=== PATIENT | male | born 1950 | race Caucasian/White ===

== ENCOUNTER → 2020-01-28 12:31 | Outpatient (CLI) | payer SELFPAY ==
[2019-12-25 11:14] VITALS: BMI 38.0
--- NOTE | 2020-01-28 12:32 | ECHOCS_ITS ---
Version 2 Reason For Study: MV Repair Procedure This was a 2D Doppler, Color Flow transthoracic echocardiogram. The study was technically difficult. Contrast injection was performed. Exam performed in department. Left Ventricle Normal LV size. Left ventricular systolic function is normal. The estimated ejection fraction is 60 %. Stage 1 diastolic dysfunction. No regional wall motion abnormalities noted. Right Ventricle Normal RV size. Normal systolic function. Atria Normal left atrium. Normal right atrium. Mitral Valve Status post mitral valve repair. Tricuspid Valve Normal tricuspid valve. Aortic Valve Trisinus/trileaflet aortic valve. Pulmonic Valve Normal pulmonic valve. Great Vessels Normal aortic root. Pericardium/Pleural No pericardial effusion. Medication 22 gauge I.V. with prn adaptor inserted into right arm. Diluted definity 2ml given slow IV push to enhance endocardial definition. MMode/2D Measurements & Calculations LVIDd: 4.4 cm IVSd: 1.5 cm Ao root diam: 3.6 cm LVIDs: 2.6 cm LVPWd: 1.1 cm LA dimension: 4.5 cm FS: 42.0 % LAV(MOD-bp): 58.9 ml LA A4 area: 20.5 cm2 RA A4 area: 17.8 cm2 LAV(MOD-bp) Indexed: 27.0 ml/m2 LAV(MOD-sp2): 61.3 ml LAV(MOD-sp4): 51.2 ml Time Measurements MV dec time: 0.31 sec Doppler Measurements & Calculations MV E max emerson: 102.5 cm/sec Lat Peak E' Emerson: 10.3 cm/sec Med Peak E' Emerson: 7.0 cm/sec MV A max emerson: 147.8 cm/sec E/E' lat: 9.9 E/E' med: 14.6 MV E/A: 0.69 MV V2 max: 150.2 cm/sec MV P1/2t max emerson: 127.1 cm/sec Ao V2 max: 151.2 cm/sec MV max P.0 mmHg MV P1/2t: 97.6 msec Ao max P.1 mmHg MV V2 mean: 82.8 cm/sec MV dec slope: 381.4 cm/sec2 MV mean P.2 mmHg MV V2 VTI: 40.0 cm MVA(P1/2t): 2.3 cm2 LV V1 max: 97.5 cm/sec PA V2 max: 107.9 cm/sec LV V1 max P.8 mmHg Interpretation Summary Normal LV size. Left ventricular systolic function is normal. The estimated ejection fraction is 60 %. Stage 1 diastolic dysfunction. Status post mitral valve repair. Contrast injection was performed. Ordering Physician: Guevara Baxter Referring Physician: William Pagan Performed By: Elan Mitchell RCS
== END ==
PROVIDERS: PCP Family Medicine; Referring Provider Internal Medicine Cardiovascular Disease; Visit Provider Internal Medicine Cardiovascular Disease
DX: I10 Essential (primary) hypertension (principal); Z98.890 Other specified postprocedural states
CPT/HCPCS: 93306; Q9957; A4216; C8929

== ENCOUNTER → 2021-12-28 | Outpatient (CLI) | payer SELFPAY ==
--- NOTE | 2021-12-28 09:54 | RAD_ITS ---
EXAM: XR CHEST, 2 VIEWS CLINICAL INDICATION: SOB TECHNIQUE: Frontal and lateral views of the chest. This report was created using [employer] report generation technology. COMPARISON: None. FINDINGS: LUNGS AND PLEURAL SPACES: There is blunting the costophrenic angles compatible small effusions. There is right basilar airspace disease. No pneumothorax. HEART: Unremarkable. Cardiac silhouette not enlarged. MEDIASTINUM: Central airways and mediastinal contour are unremarkable. BONES/JOINTS: Unremarkable. SOFT TISSUES: Unremarkable. RAD/Chest PA and Lateral IMPRESSION: Small bilateral effusions with right basilar airspace disease which may represent atelectasis or pneumonia. Electronically Signed: Manav Mota MD at 17:58 EDT ,
[2021-12-28 10:34] LABS: BNP,B-Type NATRIURETIC PEPTIDE 57.7 pg/mL (0-100)
[2021-12-28 10:40] LABS: Anion Gap 3 (5-15); BUN 16 mg/dL (7-18); BUN/Creat Ratio 23.3 RATIO (10-20); Calcium,Total 8.6 mg/dL (8.5-10.1); Chloride 106 mmol/L (98-107); Creatinine, Serum 0.69 mg/dL (0.70-1.30); EST Glomerular Filtration Rate 121 mL/min (>60); Est Glom Filt Rate - Afr Amer 146 mL/min (>60); Glucose 114 mg/dL (74-106); Potassium 4.1 mmol/L (3.5-5.1); Sodium Level 137 mmol/L (136-145)
== END | disposition home or self-care (01) ==
PROVIDERS: PCP Family Medicine; Referring Provider Nurse Practitioner Family; Visit Provider Nurse Practitioner Family
DX: I34.0 Nonrheumatic mitral (valve) insufficiency (principal); R06.00 Dyspnea, unspecified
CPT/HCPCS: 36415; 71046; 80048; 83880

== ENCOUNTER → 2024-02-12 | Outpatient (CLI) | payer SELFPAY ==
--- NOTE | 2024-02-12 14:34 | ECHOCS_ITS ---
Reason For Study: DYSPNEA Procedure This was a 2D Doppler, Color Flow transthoracic echocardiogram. The study was technically difficult. Contrast injection was performed. Exam performed in department. Left Ventricle Normal LV size. Left ventricular systolic function is normal. The left ventricular ejection fraction is 60 %. Stage 1 diastolic dysfunction. No regional wall motion abnormalities noted. Right Ventricle Normal RV size. Normal systolic function. Atria The left atrium is mildly enlarged. Normal right atrium. Mitral Valve Status post mitral valve repair. Tricuspid Valve Normal tricuspid valve. Mild (1+) tricuspid valve insufficiency. Pulmonary artery systolic pressure is 30 mmHg. Aortic Valve Trisinus/trileaflet aortic valve. Pulmonic Valve Normal pulmonic valve. Great Vessels Normal aortic root. The pulmonary artery is normal size. Inferior vena cava collapse with respiration. Pericardium/Pleural No pericardial effusion. Medication 22 gauge I.V. with prn adaptor inserted into right arm. Diluted definity 2ml given slow IV push to enhance endocardial definition. MMode/2D Measurements & Calculations LVIDd: 4.3 cm IVSd: 1.2 cm LVOT diam: 2.2 cm LVIDs: 2.7 cm LVPWd: 1.1 cm FS: 38.1 % LVOT area: 3.7 cm2 Ao root diam: 3.8 cm LAV(MOD-bp): 72.6 ml LVAd ap4: 36.1 cm2 LAV(MOD-bp) Indexed: 33.5 ml/m2 LVLd ap4: 8.4 cm LAV(MOD-sp2): 57.4 ml EDV(MOD-sp4): 124.4 ml LAV(MOD-sp4): 73.7 ml EDV(sp4-el): 131.5 ml LVAs ap4: 20.9 cm2 LVLs ap4: 6.8 cm ESV(MOD-sp4): 52.8 ml ESV(sp4-el): 54.3 ml EF(MOD-sp4): 57.5 % EF(sp4-el): 58.7 % LVAd ap2: 39.5 cm2 SV(MOD-sp4): 71.5 ml SV(MOD-sp2): 87.7 ml LVLd ap2: 8.3 cm EDV(MOD-sp2): 150.9 ml EDV(sp2-el): 158.8 ml LVAs ap2: 22.2 cm2 LVLs ap2: 6.6 cm ESV(MOD-sp2): 63.2 ml ESV(sp2-el): 63.9 ml EF(MOD-sp2): 58.1 % SV(sp4-el): 77.2 ml LA dimension(2D): 4.5 cm LA A4 area: 24.8 cm2 RA A4 area: 19.5 cm2 TAPSE: 1.5 cm Time Measurements MV dec time: 0.27 sec Doppler Measurements & Calculations MV E max emerson: 85.0 cm/sec Lat Peak E' Emerson: 9.2 cm/sec Med Peak E' Emerson: 5.5 cm/sec MV A max emerson: 118.9 cm/sec E/E' lat: 9.2 E/E' med: 15.5 MV E/A: 0.71 MV V2 max: 132.9 cm/sec Ao V2 max: 149.6 cm/sec MV max P.1 mmHg MV dec slope: 319.9 cm/sec2 Ao max P.9 mmHg MV V2 mean: 77.5 cm/sec Ao V2 mean: 106.1 cm/sec MV mean P.8 mmHg Ao mean P.0 mmHg MV V2 VTI: 33.4 cm Ao V2 VTI: 26.9 cm AV (velocity ratio): 0.76 MVA(VTI): 2.3 cm2 ZULEYMA(I,D): 2.8 cm2 ZULEYMA(V,D): 2.8 cm2 LV V1 max: 114.1 cm/sec SV(LVOT): 76.0 ml PA V2 max: 95.3 cm/sec LV V1 max P.2 mmHg PA max PG (full): 2.1 mmHg LV V1 mean P.7 mmHg LV V1 mean: 78.4 cm/sec LV V1 VTI: 20.6 cm TR max emerson: 263.3 cm/sec TR max P.7 mmHg ECHO/Echo Complete W/ Contrast Interpretation Summary Normal LV size. Left ventricular systolic function is normal. The left ventricular ejection fraction is 60 %. Stage 1 diastolic dysfunction. The left atrium is mildly enlarged. Status post mitral valve repair. Contrast injection was performed. Ordering Physician: Martha Frank Referring Physician: JEFFERY WAGNER Performed By: Teresa Pennington RDCS and Student
== END | disposition home or self-care (01) ==
LOC: CVS 14:29
PROVIDERS: Referring Provider Nurse Practitioner Gerontology; Visit Provider Nurse Practitioner Gerontology
DX: R06.00 Dyspnea, unspecified (principal); Z98.890 Other specified postprocedural states
CPT/HCPCS: 93306; Q9957; A4216; C8929

== ENCOUNTER → 2024-06-21 08:51 | Outpatient (REF) | payer SELFPAY | LOC: CVS 08:51 | DX: Z13.6 Encounter for screening for cardiovascular disorders (principal) ==

== ENCOUNTER → 2024-06-21 | Outpatient (CLI) | payer SELFPAY | END | disposition home or self-care (01) | LOC: PSN 08:46 | DX: R09.02 Hypoxemia (principal) | CPT/HCPCS: 94060; 94726; 94729 ==